=== PATIENT | female | born 1970 | race Caucasian/White ===

== ENCOUNTER 2020-10-11 08:02 | Inpatient (IN) | payer BC, SELFPAY ==
[~2020-10-11] VITALS: Ht 180.3 cm; Wt 81.6 kg
[2020-10-11] MEDS ORDERED: METOCLOPRAMIDE HCL 10 MG/2 ML VIAL IVP PRN (08:30)
[2020-10-11] MEDS ORDERED: fentaNYL CITRATE/PF 100 MCG/2 ML AMP IVP PRN ×2 (08:30)
[2020-10-11] MEDS ORDERED: ONDANSETRON HCL 4 MG/2 ML VIAL IVP PRN (08:30)
[2020-10-11 09:07] LABS: HCG,QUAL RESULT NEGATIVE (NEGATIVE)
[2020-10-11] MEDS ORDERED: OXYCODONE/ACETAMINOPHEN 5-325 TABLET PO PRN (09:45)
[2020-10-11] MEDS ORDERED: IBUPROFEN 800 MG TABLET PO PRN (09:45)
[2020-10-11] MEDS ORDERED: GLYCOPYRROLATE 0.2 MG/ML VIAL IJ ONE (10:05)
[2020-10-11] MEDS ORDERED: WATER FOR IRRIGATION,STERILE 1,000 ML IRRIG.SOLN IR ONE (10:05)
[2020-10-11] MEDS ORDERED: ROCURONIUM BROMIDE 10 MG/ML (ZEMURON) IV ONE (10:05)
[2020-10-11] MEDS ORDERED: ONDANSETRON HCL 4 MG/2 ML VIAL IVP ONE (10:05)
[2020-10-11] MEDS ORDERED: MIDAZOLAM HCL 5 MG/5 ML VIAL IVP ONE (10:05)
[2020-10-11] MEDS ORDERED: NS 1000 ML IV.SOLN IV ONE (10:05)
[2020-10-11] MEDS ORDERED: BUPIVACAINE /PF 0.25% 30 ML VIAL INJ ONE (10:05)
[2020-10-11] MEDS ORDERED: PHENYLEPHRINE HCL 10 MG/ML VIAL (NEOSYNEPHRINE) IV ONE (10:05)
[2020-10-11] MEDS ORDERED: BUPIVACAINE /EPINEPHRINE/PF 0.25% 30 ML VIAL INJ ONE (10:05)
[2020-10-11] MEDS ORDERED: CEFAZOLIN 2 GM IVPB PREMIX 50 ML IV ONE (10:05)
[2020-10-11] MEDS ORDERED: SEVOFLURANE 15 MIN GAS INH ONE (10:05)
[2020-10-11] MEDS ORDERED: LR 1,000 ML IV.SOLN IV ONE (10:05)
[2020-10-11] MEDS ORDERED: PROPOFOL 200MG/ 20ML VIAL (DIPRIVAN) IV ONE (10:05)
[2020-10-11] MEDS ORDERED: NS IRRIG SOLN 1000 ML IR ONE (10:05)
[2020-10-11] MEDS ORDERED: fentaNYL CITRATE/PF 100 MCG/2 ML AMP IVP ONE (10:05)
[2020-10-11] MEDS: ONDANSETRON HCL 4 MG/2 ML VIAL IVP PRN ×2 (13:17→20:33)
[2020-10-11] MEDS ORDERED: ONDANSETRON HCL 4 MG/2 ML VIAL ONE (13:27)
[2020-10-11] MEDS ORDERED: fentaNYL CITRATE/PF 100 MCG/2 ML AMP ONE (13:33)
[2020-10-11 13:55] VITALS: BP_SYST 116
[2020-10-11] MEDS: LR 1,000 ML IV SCH ×2 (13:58→22:10)
[2020-10-11 14:10] VITALS: BP_SYST 116
--- NOTE | 2020-10-11 14:50 | NUR ---
Post operative notes From PACU after Robotic assisted laparoscopic total hysterectomy with BSO, patient is awake drowsy answer question feeling nauseated , Zofran IV and fentanyl given prior to transfer, vitals sign monitored, physical assessment done and recorded to flow sheet, vitals sign monitored ,
--- NOTE | 2020-10-11 15:39 | NUR ---
Patient is more awake feel sore in the incision but tolerable m ice chips given tolerates , call light within reach frequent monitoring.
[2020-10-11] MEDS: HYDROmorphone 2 MG/ML VIAL IVP PRN (16:14)
[2020-10-11] MEDS ORDERED: DOCU-144 PO (17:34)
[2020-10-11] MEDS ORDERED: IBUP-1971 PO (17:35)
[2020-10-11] MEDS ORDERED: PERCOCET PO (17:36)
--- NOTE | 2020-10-11 19:30 | NUR ---
Opening note Received report from ANDREE Lopez. Patient is awake, resting in bed, no distress. Non labored breathing on room air. IVF infusing via IV to Lt hand. SCD's on. Bed is locked in lowest position, bed alarm on, side rails up and call light w/in reach.
[2020-10-11 20:00] VITALS: BP_SYST 137
[2020-10-11] MEDS: OXYCODONE/ACETAMINOPHEN 5-325 TABLET PO PRN (20:32)
[2020-10-11] MEDS: SIMETHICONE 80 MG TAB.CHEW PO PRN (20:33)
[2020-10-11] MEDS: DOCUSATE SODIUM 100 MG CAPSULE PO SCH (20:33)
--- NOTE | 2020-10-11 20:33 | NUR ---
meds; pain med Patient reporting severe pain and will try Percocet. Reports nausea and administered Zofran.
[2020-10-12] MEDS: HYDROmorphone 2 MG/ML VIAL IVP PRN (00:52)
--- NOTE | 2020-10-12 00:52 | NUR ---
Dilaudid Patient reporting severe pain and requesting medication; she reports Dilaudid helped her more than the Percocet tablet and prefers Dilaudid; It was administered as ordered. Reviewed side effects; dizzy, light headed fall risk; and she verbalized understanding.
--- NOTE | 2020-10-12 01:10 | NUR ---
D/C Adams Explained procedure to patient; she verbalized understanding. Removed, tolerated.
[2020-10-12 01:46] VITALS: BP_SYST 129
--- NOTE | 2020-10-12 03:54 | NUR ---
Resting Patient resting w/eyes closed, easy to arouse. Presently denies nausea and does not want pain medication. She doesn't need to void at this time and states she will call if needs meds/help.
[2020-10-12] MEDS: LR 1,000 ML IV SCH ×2 (06:34→15:10)
[2020-10-12] MEDS: ONDANSETRON HCL 4 MG/2 ML VIAL IVP PRN ×2 (06:43→12:25)
[2020-10-12] MEDS: OXYCODONE/ACETAMINOPHEN 5-325 TABLET PO PRN ×3 (06:44→20:04)
--- NOTE | 2020-10-12 06:44 | NUR ---
Percocet, Zofran Patient requesting pain med for severe pain. Reporting nausea and Zofran given as ordered.
--- NOTE | 2020-10-12 06:55 | NUR ---
Bladder scan Patient refusing to ambulate and attempt void in restroom. She tried bed jacobo and did not void. Bladder scan done and measured 304ml. I informed rothman catheter will need to be inserted and she said she will try to void, but is concerned of pain and I suggested BSC and she agreed.
[2020-10-12 07:30] VITALS: BP_SYST 115
--- NOTE | 2020-10-12 07:30 | NUR ---
Out of bed to bedside commode with standby assist urinated 200 cc urine is pink , perineal care given, back to bed make comfortable with semifowlers position , call light within reach.
[2020-10-12] MEDS: KETOROLAC TROMETHAMINE 30 MG VIAL IVP PRN ×2 (08:50→15:05)
[2020-10-12] MEDS: DOCUSATE SODIUM 100 MG CAPSULE PO SCH ×2 (08:50→20:04)
--- NOTE | 2020-10-12 10:42 | NUR ---
Encouraged patient to ambulate and said shes not yet ready, and she will call me.
[2020-10-12 10:46] VITALS: BP_SYST 115
--- NOTE | 2020-10-12 11:30 | NUR ---
Out of bed to bedside commode with clear urine attempted to walk in the hallway but unable due to pain ,simethicone given, will monitor.
[2020-10-12] MEDS: SIMETHICONE 80 MG TAB.CHEW PO PRN (11:31)
[2020-10-12 11:41] VITALS: BP_SYST 115
--- NOTE | 2020-10-12 13:00 | NUR ---
Patient able to eat 20% no nausea, approach patient to walked patient refused.
--- NOTE | 2020-10-12 13:40 | NUR ---
Paged Dr. Calvillo and talk to the patient, patient not comfortable going home today because of pain.
--- NOTE | 2020-10-12 13:56 | NUR ---
Pre medicate an hour ago ,able to ambulate 25 feet slowly but tolerable , kept sitting in the chair call light within reach.
--- NOTE | 2020-10-12 14:27 | NUR ---
From chair walked slowly using furniture about 30 feet,moderate pain tolerable back to bed.
[2020-10-12 15:51] VITALS: BP_SYST 126
--- NOTE | 2020-10-12 16:00 | NUR ---
Premedicate patient prior to ambulate patient inside the room 25 feet in pain no dizziness, verbalized shes not comfortable to go home today , Dr. Calvillo informed.
--- NOTE | 2020-10-12 19:00 | NUR ---
Prescription hand over to the patient .
[2020-10-12 19:30] VITALS: BP_SYST 125
--- NOTE | 2020-10-12 19:30 | NUR ---
INITIAL NOTE PATIENT IS STABLE AND IN BED. NO S/S OF RESPIRATORY DISTRESS NOTED. CALL LIGHT IN REACH. PATIENT SUCCESSFULLY DEMONSTRATES USAGE OF CALL LIGHT. BED IS LOCKED, AND AT THE LOWEST POSITION. PATIENT EDUCATED ON BED ALARM, PT REFUSED. PLAN OF CARE IS DISCUSSED WITH PATIENT. FALL, SAFETY, ASPIRATION, AND RESPIRATORY PRECAUTIONS WILL BE IN PLACE THROUGHOUT THE SHIFT.
[2020-10-13 00:20] VITALS: BP_SYST 135
[2020-10-13] MEDS: LR 1,000 ML IV SCH ×2 (01:46→09:45)
[2020-10-13] MEDS: OXYCODONE/ACETAMINOPHEN 5-325 TABLET PO PRN (06:49)
--- NOTE | 2020-10-13 06:57 | NUR ---
CLOSING NOTES PATIENT IS STABLE AND LAYING IN BED. NO S/S OF RESPIRATORY DISTRESS. CALL LIGHT IN REACH. FALL, SAFETY, ASPIRATION, AND RESPIRATORY PRECAUTIONS HAS BEEN IN PLACE THROUGHOUT THE SHIFT. BED, IS LOCKED AND AT THE LOWEST POSITION. PATIENT EDUCATED ON BED ALARM, PT REFUSED. WILL CONTINUE TO MONITOR UNTIL SBAR REPORT IS ENDORSED TO AM NURSE.
--- NOTE | 2020-10-13 08:00 | NUR ---
Opening note Patient is resting in bed A&O x4 no complaint of pain or discomfort, no signs or symptoms of respiratory distress. IV is infusing well no signs or symptoms of respiratory distress. Educated patient on plan of care, patient verbalized understanding. Fall and aspiration precautions are in place. Will continue to monitor.
[2020-10-13 08:08] VITALS: BP_SYST 120
[2020-10-13] MEDS: DOCUSATE SODIUM 100 MG CAPSULE PO SCH (08:10)
--- NOTE | 2020-10-13 08:50 | NUR ---
RN note Spoke with MD Calixto ok with patient to discharge.
[2020-10-13 09:51] VITALS: BP_SYST 120
== END 2020-10-13 10:55 | disposition home or self-care (01) | DRG 519 ==
LOC: SDS 08:02 → SMU 08:03 → SDS 10-12 16:09 → SMU 10-12 16:10
PROVIDERS: ADMIT Obstetrics & Gynecology; ATTEND Obstetrics & Gynecology
PROC: 0UT70ZZ Resection of Bilateral Fallopian Tubes, Open Approach (ICD-10-PCS; 2020-10-11)
PROC: 0UT20ZZ Resection of Bilateral Ovaries, Open Approach (ICD-10-PCS; 2020-10-11)
PROC: 0UT90ZZ Resection of Uterus, Open Approach (ICD-10-PCS; principal; 2020-10-11 10:05)
DX: D25.9 Leiomyoma of uterus, unspecified (principal); N92.0 Excessive and frequent menstruation with regular cycle; Z20.822 Contact with and (suspected) exposure to COVID-19
CPT/HCPCS: 36415; 84703; 86886; 86900; 86901; 87081; 88307; C1727; E0190; J0690; J1170; J1885; J2250; J2370; J2405; J2704; J3010; J3490; J7030; J7120; U0003